=== PATIENT | female | born 1930 | race African-American/Black ===

== ENCOUNTER 2016-09-25 00:09 | Emergency (ER) | payer OTHER ==
[~2016-09-25] VITALS: Ht 162.6 cm; Wt 74.8 kg
--- NOTE | ~2016-09-25 | EKG ---
[address] [address] ELECTROCARDIOGRAM REPORT Name: BAR BENNETT DUBOIS Room #: DEP [facility]#: [id number] Admission: 09/25/16 Attend Phys: Discharge: 09/25/16 Date of : 34 Report #: [id number] THIS REPORT FOR: //name// [facility] ED Test Date: 2016-09-25 Test Time: 01:02:09 Pat Name: BAR BENNETT Department: Room: Gender: F Dining Service Worker: MADHU : 1930 Requested By: Ta Ruffin Order Number: [id number] MD: Milo Nunez Measurements Intervals [place] Rate: 70 P: 27 CO: 226 QRS: -16 QRSD: 92 T: 47 QT: 415 QTc: 448 Interpretive Statements Sinus rhythm Prolonged CO interval Left ventricular hypertrophy Anterior Q waves, possibly due to LVH Compared to ECG 03/02/2016 14:30:23 First degree AV block now present Q waves now present Electronically Signed On 09-25-2016 9:43:21 CDT by Milo Nunez [email or web address] <ELECTRONICALLY SIGNED> By: Milo Nunez MD 09/25/16 0943 1 010 Milo Nunez MD /EPI
[~2016-09-25 00:09] MED LIST: ASPIR 8181 MG PO; COZAAR 50 MG TA50 M2 PO; GLUCOPHAGE XR500 MG PO; PENTOXIFYLLINE400 MG PO
[2016-09-25 01:08] LABS: ABSOLUTE NEUTROPHILS 3.1 thou/uL (1.4-8.2); BASOPHILS 0.3 % (0.0-2.0); EOSINOPHILS 0.8 % (0.0-3.0); HEMATOCRIT 35.7 % (37.0-47.0); LYMPHOCYTES 40.4 % (24.0-44.0); MCH 29.6 pg (26.0-34.0); MCHC 33.7 g/dL (28.0-37.0); MONOCYTES 11.5 % (1.0-8.0); PLATELET COUNT 126 thou/uL (150-400); RBC 4.06 mil/uL (4.20-5.00); RDW 12.5 % (10.5-14.5); WBC 6.5 thou/uL (4.0-11.0)
[2016-09-25 01:11] LABS: MANUAL DIFF NO
[2016-09-25 01:23] LABS: ANION GAP 7 mmol/L (7-16); APTT 19.2 Seconds (24.5-32.8); BUN 12 mg/dL (7-18); CALCIUM 9.6 mg/dL (8.5-10.1); CHLORIDE 100 mmol/L (98-107); CO2 30 mmol/L (21-32); CREATININE 0.8 mg/dL (0.6-1.0); GLUCOSE 155 mg/dL (74-106); POTASSIUM 4.1 mmol/L (3.5-5.1); PROTIME 9.8 Seconds (9.3-11.4); SODIUM 137 mmol/L (136-145)
[2016-09-25 01:40] LABS: ALBUMIN 3.6 g/dL (3.4-5.0); ALKALINE PHOSPHATASE 107 U/L (46-116); CK-MB MASS 1.8 ng/mL (<0.5-3.6); MAGNESIUM 1.9 mg/dL (1.8-2.4); NT-PRO BRAIN NAT PEPTIDE 257 pg/mL (<300); SGOT 42 U/L (15-37); SGPT 41 U/L (30-65); TOTAL BILIRUBIN 0.3 mg/dL (<0.1-1.0); TOTAL PROTEIN 7.8 g/dL (6.4-8.2); TROPONIN-I < 0.04 ng/mL (<0.04-0.07)
[2016-09-25 02:28] LABS: LARGE PLATELETS RARE
[2016-09-25 03:01] VITALS: BP 99/53
[2016-09-25] MEDS ORDERED: CLONIDINE0.1 PO (03:06)
== END 2016-09-25 03:16 | disposition home or self-care (01) ==
LOC: ER 00:09
PROVIDERS: Emergency Medicine
DX: I10 Essential (primary) hypertension (principal); E11.40 Type 2 diabetes mellitus with diabetic neuropathy, unspecified; E78.5 Hyperlipidemia, unspecified; Z90.710 Acquired absence of both cervix and uterus

== ENCOUNTER → 2017-09-09 | Outpatient (CLI) | payer OTHER ==
[~2017-09-09] MED LIST changes: +CLONIDINE0.1 PO
== END ==
LOC: RAD 12:34
DX: R06.00 Dyspnea, unspecified (principal); I70.0 Atherosclerosis of aorta

== ENCOUNTER → 2018-04-22 | Outpatient (CLI) | payer OTHER | LOC: RAD 01:24 | DX: Z12.31 Encounter for screening mammogram for malignant neoplasm of breast (principal) ==

== ENCOUNTER → 2019-04-23 | Outpatient (CLI) | payer OTHER | LOC: RAD 10:59 | DX: Z12.31 Encounter for screening mammogram for malignant neoplasm of breast (principal) ==

== ENCOUNTER → 2019-06-10 | Outpatient (CLI) | payer OTHER | LOC: RAD 12:21 | DX: J45.20 Mild intermittent asthma, uncomplicated (principal) ==

== ENCOUNTER → 2020-01-05 | Outpatient (CLI) | payer OTHER | LOC: RAD 13:43 | PROVIDERS: ATTEND Internal Medicine | DX: R06.02 Shortness of breath (principal) ==

== ENCOUNTER → 2020-02-02 | Outpatient (CLI) | payer OTHER | LOC: RAD 15:38 | PROVIDERS: ATTEND Internal Medicine | DX: M16.12 Unilateral primary osteoarthritis, left hip (principal); M25.78 Osteophyte, vertebrae ==

== ENCOUNTER → 2020-05-10 | Outpatient (CLI) | payer OTHER | LOC: RAD 08:32 | PROVIDERS: ATTEND Internal Medicine | DX: Z12.31 Encounter for screening mammogram for malignant neoplasm of breast (principal) ==

== ENCOUNTER → 2020-05-25 | Outpatient (CLI) | payer OTHER | LOC: HYPER 15:42 | PROVIDERS: ATTEND Emergency Medicine | DX: E11.622 Type 2 diabetes mellitus with other skin ulcer (principal); I87.331 Chronic venous hypertension (idiopathic) with ulcer and inflammation of right lower extremity; L97.212 Non-pressure chronic ulcer of right calf with fat layer exposed; R60.0 Localized edema; R21 Rash and other nonspecific skin eruption; L30.9 Dermatitis, unspecified; E11.43 Type 2 diabetes mellitus with diabetic autonomic (poly)neuropathy; E78.00 Pure hypercholesterolemia, unspecified; G47.33 Obstructive sleep apnea (adult) (pediatric); J45.909 Unspecified asthma, uncomplicated; M19.90 Unspecified osteoarthritis, unspecified site; Z79.84 Long term (current) use of oral hypoglycemic drugs; Z86.718 Personal history of other venous thrombosis and embolism ==

== ENCOUNTER 2021-01-24 18:32 | Emergency (ER) | payer OTHER ==
[~2021-01-24] VITALS: Ht 160 cm; Wt 54.4 kg
--- NOTE | ~2021-01-24 | EMS ---
[address] [address] EMS Patient Care Report Name: MIKAELA BENNETT Room #: DEP [facility]#: [id number] Admission: 01/24/21 Attend Phys: Discharge: 01/24/21 Date of : 34 Report #: [id number] THIS REPORT FOR: //name// Report Transmitted: 01/29/2021 11:09 EMS Care Summary [facility]ION DOZIER Incident [id number] @ 01/24/2021 17:29 Incident Location [address] [place] [address] Patient Mikaela Bennett Female, 89 Years 1930 Patient [place] [address] [place] [address] Patient History Sleep Apnea,Hypertension (HTN),Aneurysm of unspecified site, Patient Allergies No known allergies, Chief Complaint Unconsciousness Disposition Transported No Lights/[place] Dispatch Reason Sick Person Transported To [facility] Narrative Dispatched for altered LOC. Pt was found lying supine in a bed. Pt was alert and oriented, no obvious distress. Nursing staff reported that they found the patient in her wheelchair unresponsive. Reports that they sternal rubbed her and she did not respond so they moved her out of the chair and onto the floor to start CPR when she awoke. No CPR was initiated. Pt reported that she has severe sleep apnea and has been without her CPAP machine for 6 months to [address] [address] EMS Patient Care Report Name: MIKAELA BENNETT Room #: DEP [facility]#: [id number] Admission: 01/24/21 Attend Phys: Discharge: 01/24/21 Date of : 34 Report #: [id number] year. Pt denied chest pain, SOA, fever, abdominal pain, dizziness or headache. Pt was in no apparent distress. Pt's vitals obtained and WNL. Pt was moved to the cot, secured and moved to the ambulance. Pt was placed on the monitor. Transport initiated. Pt answered all questions appropriately. Pt had no complaints during transport. Pt was monitored during transport and remained stable, no apneic episodes witnessed. Pt rested comfortably on the cot during transport. Pt was moved into the ER and transferred to the bed. Report was given and pt care transferred. Initial Vitals @17:54 @17:38P: 68,R: 18,BP: 112/50, @17:54P: 67,R: 18,BP: 124/52, @18:11P: 67,R: 18,BP: 127/70, @17:38GCS: 15, @17:54GCS: 15, @18:11GCS: 15, Assessments @17:38MENTAL:SKIN:HEENT:LUNG SOUNDS:ABDOMEN:PELVIS//GI:EXTREMITIES:PULSE:NEURO: Impression Syncope / Fainting Procedures @17:543-Lead ECGResponse: UnchangedSucceeded Timeline 17:28,Call Received 17:28,Dispatch Notified 17:28,Psap Call 17:29,Dispatched 17:31,En Route 17:35,On Scene 17:38,At Patient 17:38,BP: 112/50 M,PULSE: 68,RR: 18 R,SPO2: Ox,ETCO2: ,BG: ,PAIN: ,GCS: , 17:38,BP: / M,PULSE: ,RR: R,SPO2: Ox,ETCO2: ,BG: ,PAIN: ,GCS: 15, 17:54,Depart Scene 17:54,3-Lead ECG,Response: UnchangedSucceeded, 17:54,BP: / M,PULSE: ,RR: R,SPO2: Ox,ETCO2: ,BG: ,PAIN: ,GCS: , 17:54,BP: 124/52 M,PULSE: 67,RR: 18 R,SPO2: Ox,ETCO2: ,BG: ,PAIN: ,GCS: , 17:54,BP: / M,PULSE: ,RR: R,SPO2: Ox,ETCO2: ,BG: ,PAIN: ,GCS: 15, 18:11,BP: 127/70 M,PULSE: 67,RR: 18 R,SPO2: Ox,ETCO2: ,BG: ,PAIN: ,GCS: , 18:11,BP: / M,PULSE: ,RR: R,SPO2: Ox,ETCO2: ,BG: ,PAIN: ,GCS: 15, 18:25,At Destination [address] [place] [address] EMS Patient Care Report Name: MIKAELA BENNETT Room #: [facility]#: [id number] Admission: 01/24/21 Attend Phys: Discharge: 01/24/21 Date of : 34 Report #: [id number] 18:40,Call Closed Disclaimer [email or web address] Copyright 2020 [employer] This EMS Care Summary contains data elements from the applicable legal record (which may be displayed differently). It is designed to provide pertinent information for the following purposes: continuity of care, clinical quality, and state data reporting. The complete legal record is available to ED staff and administrators of the receiving hospital in [employer]'s Patient Tracker. All data is provided "as is."
[~2021-01-24 18:32] MED LIST changes: +ACETAMINOPHEN325 M1 PO; +AMMONIUM LACTA226 GM TOP; +COZAAR100 MG PO; +FELODIPINE 5 MG5 M1 PO
[2021-01-24 19:01] LABS: ABSOLUTE NEUTROPHILS 3.6 thou/uL (1.4-8.2); BASOPHILS 0.7 % (0.0-2.0); EOSINOPHILS 1.4 % (0.0-3.0); HEMATOCRIT 32.9 % (37.0-47.0); HEMOGLOBIN 10.8 gm/dL (12.0-15.0); MCH 29.1 pg (26.0-34.0); MCHC 32.7 g/dL (28.0-37.0); MCV 88.8 fL (80.0-100.0); MONOCYTES 6.1 % (1.0-8.0); PLATELET COUNT 76 thou/uL (150-400); POLYS 41.8 % (36.0-66.0); WBC 8.6 thou/uL (4.0-11.0)
[2021-01-24 19:04] LABS: CALCIUM 9.4 mg/dL (8.5-10.1); CREATININE 0.7 mg/dL (0.6-1.0); POTASSIUM 4.3 mmol/L (3.5-5.1)
[2021-01-24 19:09] LABS: URINE BILIRUBIN NEGATIVE (Negative); URINE BLOOD NEGATIVE (Negative); URINE CLARITY CLEAR; URINE COLOR YELLOW; URINE GLUCOSE-RANDOM* NEGATIVE (Negative); URINE KETONES TRACE (Negative); URINE LEUKOCYTES-REFLEX NEGATIVE (Negative); URINE NITRITE-REFLEX NEGATIVE (Negative); URINE PROTEIN (DIPSTICK) NEGATIVE (Negative)
[2021-01-24 22:37] VITALS: BP 142/88
--- NOTE | 2021-01-25 08:12 | EKG ---
[place] [address] [facility] [place] [address] ELECTROCARDIOGRAM REPORT Name: BAR BENNETT Room #: DEP [facility]#: [id number] Admission: 01/24/21 Attend Phys: Discharge: 01/24/21 Date of : 34 Report #: [id number] [facility] ED Test Date: 2021-01-24 Test Time: 18:43:42 Pat Name: BAR BENNETT Department: Room: Gender: F Social Services Director: ABEL : 1930 Requested By: Rob Curiel Order Number: [id number] MD: Surendra Carver Measurements Intervals [place] Rate: 59 P: 29 [place]: 191 QRS: 17 QRSD: 82 T: 56 QT: 410 QTc: 407 Interpretive Statements Sinus bradycardia Otherwise no significant abnormality Compared to ECG 09/25/2016 01:02:09 Myocardial infarct finding now present First degree AV block no longer present Electronically Signed On 01-25-2021 8:12:40 CDT by Surendra aCrver [email or web address] <ELECTRONICALLY SIGNED> By: Surendra Carver MD, [facility] 01/25/21 0812 [id number] Surendra Carver MD, FACC /EPI
== END 2021-01-24 22:46 | disposition home or self-care (01) ==
LOC: ER 18:32
PROVIDERS: Nurse Practitioner
DX: R40.4 Transient alteration of awareness (principal); J45.909 Unspecified asthma, uncomplicated; I10 Essential (primary) hypertension; E78.00 Pure hypercholesterolemia, unspecified; Z90.710 Acquired absence of both cervix and uterus; Z79.891 Long term (current) use of opiate analgesic; Z79.899 Other long term (current) drug therapy; Z79.82 Long term (current) use of aspirin; Z79.84 Long term (current) use of oral hypoglycemic drugs